=== PATIENT | female | born 1950 | race Caucasian/White ===

== ENCOUNTER → 2017-03-17 | Outpatient (CLI) | payer MEDICARE, OTHER | LOC: M PLARAD 13:58 | DX: M75.22 Bicipital tendinitis, left shoulder (principal); R93.7 Abnormal findings on diagnostic imaging of other parts of musculoskeletal system | CPT/HCPCS: 73221 ==

== ENCOUNTER → 2023-03-28 | Outpatient (REF) | payer MEDICARE, OTHER, BC | LOC: M SFHCDERM 17:55 | PROVIDERS: ATTEND Physician Assistant | DX: D23.62 Other benign neoplasm of skin of left upper limb, including shoulder (principal) ==

== ENCOUNTER → 2023-08-20 | Outpatient (REF) | payer MEDICARE, BC | LOC: M SFHCDERM 09:15 | PROVIDERS: ATTEND Physician Assistant | DX: C44.399 Other specified malignant neoplasm of skin of other parts of face (principal) ==